=== PATIENT | female | born 1990 | race Two or more races ===

== ENCOUNTER 2018-06-30 21:58 | Emergency (ER) | payer MEDICAID ==
[~2018-06-30] VITALS: Ht 162.6 cm; Wt 99.8 kg
[2018-06-30 22:18] LABS: Basophils # (auto) 0 uL; Eosinophils # (auto) 0.1 uL; Lymphocytes # (auto) 0.7 uL
[2018-06-30 22:20] LABS: Basophils % (auto) 0.5 % (0.0-2.0); Eosinophils % (auto) 1.3 % (0.0-7.0); Hematocrit 39.2 % (36.0-46.0); Hemoglobin 13.2 g/dL (12.2-16.2); Mean Corpuscular Hemoglobin 24.4 pg (28.0-32.0); Mean Corpuscular Hgb Conc. 33.6 g/dL (32.0-36.0); Mean Corpuscular Volume 72.6 fL (80.0-100.0); Monocytes # (auto) 0.3 uL; Monocytes % (auto) 3.7 % (0.0-12.0); Neutrophils # (auto) 6.2 uL; Neutrophils % (auto) 84.5 % (37.0-80.0); Nucleated Red Blood Cells % 0.1 %; Platelet Count (auto) 274 10^3/uL (140-450); Red Cell Distribution Width 17.6 % (11.8-14.3); White Blood Cell 7.4 10^3/uL (4.4-10.8)
[2018-06-30 22:24] LABS: Urine Bacteria NONE SEEN /hpf (None Seen); Urine Blood 2+ /uL (Negative); Urine Mucus FEW (None Seen); Urine Specific Gravity 1.037 (1.001-1.035); Urine WBC 16 /hpf (0 - 5)
[2018-06-30 22:31] LABS: Potassium 3.4 mmol/L (3.5-5.1)
[2018-06-30 22:33] LABS: Albumin 3.7 g/dL (3.4-5.0)
[2018-06-30 22:39] LABS: BUN/Creatinine Ratio 11.7; Bilirubin, Total 0.4 mg/dL (0.2-1.0); Total Protein 8.2 g/dL (6.4-8.2)
[2018-07-01] MEDS ORDERED: SODIUM CHLORIDE 0.9% 1,000 ML IV ONE (02:45)
[2018-07-01] MEDS ORDERED: ONDANSETRON HCL 4 MG/2 ML VIAL IV ONE (02:45)
[2018-07-01 03:49] VITALS: BP 108/54
== END 2018-07-01 04:04 | disposition home or self-care (01) ==
LOC: ER 22:05
DX: O99.89 Other specified diseases and conditions complicating pregnancy, childbirth and the puerperium (principal); M54.9 Dorsalgia, unspecified; Z3A.09 9 weeks gestation of pregnancy
CPT/HCPCS: 36415; 76801; 80053; 81001; 84702; 85025; 96374; 99284; J2405; J7030

== ENCOUNTER 2019-01-12 19:01 | Observation (INO) | payer MEDICAID | END 2019-01-12 21:05 | disposition home or self-care (01) | DRG 861 | LOC: LDRP 19:01 | PROVIDERS: ADMIT Specialist; ATTEND Specialist | DX: Z34.83 Encounter for supervision of other normal pregnancy, third trimester (principal); Z3A.38 38 weeks gestation of pregnancy | CPT/HCPCS: 59025; 76818; 81002; G0378 ==

== ENCOUNTER 2019-01-15 15:03 | Observation (INO) | payer MEDICAID | END 2019-01-15 16:40 | disposition home or self-care (01) | DRG 566 | LOC: LDRP 15:03 | PROVIDERS: ADMIT Specialist; ATTEND Specialist | DX: O62.9 Abnormality of forces of labor, unspecified (principal); N89.8 Other specified noninflammatory disorders of vagina; O34.63 Maternal care for abnormality of vagina, third trimester; Z3A.38 38 weeks gestation of pregnancy | CPT/HCPCS: 59025; 76818; 81002; G0378 ==

== ENCOUNTER 2019-01-19 18:53 | Observation (INO) | payer MEDICAID | END 2019-01-19 20:45 | disposition home or self-care (01) | DRG 566 | LOC: LDRP 18:53 | PROVIDERS: ADMIT Obstetrics & Gynecology; ATTEND Obstetrics & Gynecology | DX: O40.3XX0 Polyhydramnios, third trimester, not applicable or unspecified (principal); Z3A.39 39 weeks gestation of pregnancy | CPT/HCPCS: 59025; 76818; 81002; G0378 ==

== ENCOUNTER 2019-01-22 13:07 | Observation (INO) | payer MEDICAID | END 2019-01-22 14:30 | disposition home or self-care (01) | DRG 566 | LOC: LDRP 13:07 | PROVIDERS: ADMIT Obstetrics & Gynecology; ATTEND Obstetrics & Gynecology | DX: O40.3XX0 Polyhydramnios, third trimester, not applicable or unspecified (principal); N89.8 Other specified noninflammatory disorders of vagina; O34.63 Maternal care for abnormality of vagina, third trimester; O62.9 Abnormality of forces of labor, unspecified; Z3A.39 39 weeks gestation of pregnancy | CPT/HCPCS: 59025; 76818; 81002; G0378 ==

== ENCOUNTER 2019-01-25 10:10 | Observation (INO) | payer MEDICAID | END 2019-01-25 11:25 | disposition home or self-care (01) | DRG 566 | LOC: LDRP 10:10 | PROVIDERS: ADMIT Specialist; ATTEND Specialist | DX: O40.3XX0 Polyhydramnios, third trimester, not applicable or unspecified (principal); Z3A.39 39 weeks gestation of pregnancy | CPT/HCPCS: 59025; 76818; 81002; G0378 ==

== ENCOUNTER 2019-01-28 07:00 | Inpatient (IN) | payer MEDICAID ==
[2019-01-28] VITALS (13 sets, daily range): BP systolic 110–131; BP diastolic 31–87
[~2019-01-28] VITALS: Ht 162.6 cm; Wt 123.4 kg
[2019-01-28] MEDS: LACTATED RINGER'S 1,000 ML IV SCH ×3 (07:20→14:20)
[2019-01-28] MEDS ORDERED: PREN-96 PO (07:50)
[2019-01-28 08:01] LABS: Basophils # (auto) 0 uL; Eosinophils # (auto) 0.1 uL; Lymphocytes # (auto) 1.2 uL; Monocytes # (auto) 0.4 uL
[2019-01-28 08:03] LABS: Basophils % (auto) 0.4 % (0.0-2.0); Eosinophils % (auto) 0.9 % (0.0-7.0); Hematocrit 31.1 % (36.0-46.0); Hemoglobin 10.1 g/dL (12.2-16.2); Lymphocytes % (auto) 15.9 % (10.0-50.0); Mean Corpuscular Hemoglobin 22.5 pg (28.0-32.0); Mean Corpuscular Hgb Conc. 32.5 g/dL (32.0-36.0); Mean Corpuscular Volume 69.3 fL (80.0-100.0); Monocytes % (auto) 4.6 % (0.0-12.0); Neutrophils % (auto) 78.2 % (37.0-80.0); Platelet Count (auto) 230 10^3/uL (140-450); Red Blood Cells 4.49 10^6/uL (4.0-5.20); Red Cell Distribution Width 19.1 % (11.8-14.3); White Blood Cell 7.7 10^3/uL (4.4-10.8)
[2019-01-28 08:05] LABS: Urine Bacteria FEW /hpf (None Seen); Urine Blood Negative /uL (Negative); Urine Mucus FEW (None Seen); Urine Specific Gravity 1.029 (1.001-1.035); Urine WBC 2 /hpf (0 - 5)
[2019-01-28 08:08] LABS: INR 0.96 (0.9-1.15); Partial Thromboplastin Time 26.5 sec (23.64-32.05)
[2019-01-28 08:10] LABS: Albumin 2.4 g/dL (3.4-5.0); BUN/Creatinine Ratio 13.6; Calcium 8.1 mg/dL (8.5-10.1); Potassium 3.8 mmol/L (3.5-5.1)
[2019-01-28 08:13] LABS: Bilirubin, Total 0.4 mg/dL (0.2-1.0); Total Protein 6.7 g/dL (6.4-8.2)
[2019-01-28] MEDS ORDERED: PHENYLEPHRINE HCL 10 MG/ML VL IV ONE (10:58)
[2019-01-28] MEDS ORDERED: TETRACAINE 1% INJ 2 ML VIAL IJ ONE (11:03)
[2019-01-28] MEDS ORDERED: MORPHINE SULF(PF) 0.5MG/ML 10ML VIAL ONE (11:06)
[2019-01-28] MEDS ORDERED: ePHEDrine SULFATE 50 MG/ML AMP ONE (11:07)
[2019-01-28] MEDS ORDERED: OXYTOCIN 10 UNIT/ML 10ML VIAL ONE (11:08)
[2019-01-28] MEDS ORDERED: ceFAZolin 1GM VL ONE (11:09)
[2019-01-28] MEDS ORDERED: METOCLOPRAMIDE HCL 5MG/ml INJ 2ml VIAL ONE (11:25)
--- NOTE | 2019-01-28 11:50 | NUR ---
PER DR. ROBERTSON, PT CAN HAVE OFIRIMEV IV 1000MG ONCE, NO IV TORADOL FOR PATIENT. READ BACK AND VERIFIED ORDERS. WILL CARRY OUT.
[2019-01-28] MEDS ORDERED: diphenhdrAMINE HCL 50 MG/1 ML VL IV PRN (12:15)
[2019-01-28] MEDS ORDERED: HYDROmorphone HCL 2 MG/ML VL IV PRN (12:15)
[2019-01-28] MEDS ORDERED: KETOROLAC TROMETH 30 MG/ML 1ML VIAL IV PRN (12:15)
[2019-01-28] MEDS ORDERED: NALOXONE HCL 0.4 MG/ML VIAL IV PRN ×2 (12:15)
[2019-01-28] MEDS ORDERED: ONDANSETRON HCL 4 MG/2 ML VIAL IV PRN ×3 (12:15→12:45)
[2019-01-28] MEDS ORDERED: LACT. RINGERS/OXYTOCIN 20UNITS 1,000 ML IV SCH (12:36)
[2019-01-28] MEDS ORDERED: MORPHINE SULFATE 4 MG/ML SYR/VIAL IV PRN (12:45)
--- NOTE | 2019-01-28 13:05 | NUR ---
PATIENT REPORT RECEIVED FROM APPLICATION DESIGNERNATALIYA SIMS IN PACU.
[2019-01-28] MEDS ORDERED: ACETAMINOPHEN IV 1000 MG/100ML (10MG/ML) IV ONE (13:15)
--- NOTE | 2019-01-28 13:34 | NUR ---
Post Op for LDRP: Received patient from PACU via bed to room 108b. Patient A/A/Ox4, abdominal binder and bilateral SCD's are in place, IV fluids placed on pump and infusing per order, incisional site dressing clean/dry/intact and Dubose Catheter to gravity draining clear yellow urine. Incentive Spirometer at bedside and instruction on proper use with return demonstration done by patient. Pts fundus is firm, 2 above umbilicus, small bleeding noted. No denies any pain. Will continue to monitor.
[2019-01-28] MEDS ORDERED: ceFAZolin 1GM/50ML 50 ML IV SCH (14:00)
--- NOTE | 2019-01-28 14:05 | NUR ---
DR. ROBERTSON AT NURSES STATION, STATUS UPDATE GIVEN, TRENDING VITAL SIGNS GIVEN, URINE DIP RESULTS GIVEN, PTS FUNDUS IS FIRM, 2 ABOVE UMBILICUS, SMALL BLEEDING NOTED. ORDERS RECEIVED FROM DR. ROBERTSON FOR LR 125ML/HR, ANCEF 1GM Q8HRS. READ BACK AND VERIFIED ORDERS. WILL CARRY OUT.
--- NOTE | 2019-01-28 15:20 | NUR ---
DR. ROBERTSON CALLED, ORDERS RECEIVED FROM DR. ROBERTSON FOR HOURLY VITALS SIGNS (BLOOD PRESSURE, PULSE, O2 SATURATION), AND HOURLY [place] URINE OUTPUTS UNTIL THE MORNING. DR. ROBERTSON GIVEN ALL TRENDING VITAL SIGNS AND HOURLY URINE OUTPUTS. READ BACK AND VERIFIED. WILL CARRY OUT.
--- NOTE | 2019-01-28 18:25 | NUR ---
PT REPORT GIVEN TO Rose Marie DELA CRUZ RN ON STABLE PATIENT. NO DISTRESS NOTED, PTS RESPIRATIONS ARE EVEN AND NONLABORED, RELINQUISHED CARE.
[2019-01-28] MEDS: ceFAZolin 1GM/50ML 50 ML IV SCH (19:56)
[2019-01-28 20:07] LABS: Basophils # (auto) 0 uL; Eosinophils # (auto) 0 uL; Lymphocytes # (auto) 1.2 uL; Lymphocytes % (auto) 13.3 % (10.0-50.0); Mean Corpuscular Hgb Conc. 32.5 g/dL (32.0-36.0); Monocytes # (auto) 0.5 uL; Monocytes % (auto) 5.4 % (0.0-12.0); Neutrophils # (auto) 7.1 uL
[2019-01-28 20:09] LABS: Basophils % (auto) 0.2 % (0.0-2.0); Eosinophils % (auto) 0.4 % (0.0-7.0); Hematocrit 25.5 % (36.0-46.0); Hemoglobin 8.3 g/dL (12.2-16.2); Mean Corpuscular Hemoglobin 22.5 pg (28.0-32.0); Mean Corpuscular Volume 69.2 fL (80.0-100.0); Neutrophils % (auto) 80.7 % (37.0-80.0); Nucleated Red Blood Cells % 0.1 %; Platelet Count (auto) 204 10^3/uL (140-450); Red Blood Cells 3.68 10^6/uL (4.0-5.20); Red Cell Distribution Width 18.6 % (11.8-14.3); White Blood Cell 8.7 10^3/uL (4.4-10.8)
--- NOTE | 2019-01-28 20:45 | NUR ---
Spoke with Chelsy GAMBOA with update on urine output of patient. Orders received to give 500cc LR bolus. Will follow orders.
--- NOTE | 2019-01-28 22:00 | NUR ---
Bottle-feeding Education: Patient encouraged to breastfeed. Benefits of and the risk of providing formula to was discussed. Patient verbalized understanding of the benefits and is aware of risk and insists on bottle-feeding. Formula provided and instruction on formula preparation from the [facility] booklet reviewed with patient.
[2019-01-29] MEDS ORDERED: ACETAMINOPHEN IV 100 ML IV ONE (01:10)
--- NOTE | 2019-01-29 02:39 | NUR ---
Ambulation: Patient OOB with standby assistance by RN. Patient ambulates within the room and situates self in chair. Dubose catheter remains in place per 's orders, draining light jovanna urine. Pericare teaching provided with returned demonstration by patient. Clean gown provided and bed linen changed.
[2019-01-29 02:50] VITALS: BP 94/56
[2019-01-29] MEDS: ceFAZolin 1GM/50ML 50 ML IV SCH (04:03)
[2019-01-29 04:06] LABS: RPR Non Reactive (Non Reactive)
[2019-01-29 07:04] LABS: Basophils # (auto) 0 uL; Eosinophils # (auto) 0.1 uL; Hemoglobin 8.1 g/dL (12.2-16.2)
[2019-01-29 07:09] LABS: Basophils % (auto) 0.3 % (0.0-2.0); Eosinophils % (auto) 0.8 % (0.0-7.0); Hematocrit 24.3 % (36.0-46.0); Lymphocytes # (auto) 0.8 uL; Mean Corpuscular Hgb Conc. 33.3 g/dL (32.0-36.0); Monocytes # (auto) 0.5 uL; Monocytes % (auto) 6.3 % (0.0-12.0); Neutrophils # (auto) 6.2 uL; Neutrophils % (auto) 81.6 % (37.0-80.0); Nucleated Red Blood Cells % 0.1 %; Platelet Count (auto) 192 10^3/uL (140-450); Red Blood Cells 3.52 10^6/uL (4.0-5.20); Red Cell Distribution Width 18.4 % (11.8-14.3); White Blood Cell 7.6 10^3/uL (4.4-10.8)
--- NOTE | 2019-01-29 07:17 | NUR ---
Thakkar catheter dc'd Order to discontinue thakkar catheter. Thakkar dc'd with clean technique following deflation of balloon. Patient tolerated well with no complaints of pain. Continue care.
[2019-01-29 07:21] VITALS: BP 116/80
[2019-01-29] MEDS ORDERED: HYDROcodone-ACET 5/325MG TAB PO PRN (07:30)
[2019-01-29] MEDS ORDERED: BISACODYL 10 MG RECT SUPP PR PRN (07:30)
--- NOTE | 2019-01-29 08:00 | NUR ---
entered room, patient in bathroom, call light was pulled. standing and holding side rail for stability. patient was pale and stated she felt dizzy. three other RN's in room for assistance. got patient back in bed sitting on side on bed. patients blood pressure 109/64. set patient in chair next to bed.
[2019-01-29] MEDS: IBUPROFEN 800 MG TAB PO PRN (09:04)
[2019-01-29] MEDS: DOCUSATE CALCIUM 240 MG CAP PO SCH (09:51)
[2019-01-29] MEDS: DOCUSATE SOD 100 MG CAP PO SCH ×2 (09:51→21:50)
[2019-01-29] MEDS: FERROUS SULFATE 325 MG TAB PO SCH ×2 (09:52→21:50)
[2019-01-29 10:50] VITALS: BP 114/71
[2019-01-29] MEDS ORDERED: ceFAZolin 1GM/50ML 50 ML IV SCH (12:00)
[2019-01-29] MEDS: SIMETHICONE 80 MG CHEWABLE TABLET PO SCH ×3 (12:08→21:50)
--- NOTE | 2019-01-29 13:00 | NUR ---
Ambulation: Patient OOB with standby assistance by RN. Patient ambulated to bathroom with steady gait. Patient able to void without difficulty. Pericare teaching provided with returned demonstration by patient. Clean gown provided. Patient ambulated back to bed with steady gait and no distress noted.
[2019-01-29 15:00] VITALS: BP 118/65
[2019-01-29 19:00] VITALS: BP 110/58
[2019-01-29] MEDS: HYDROcodone-ACET 5/325MG TAB PO PRN (21:15)
[2019-01-29 22:45] VITALS: BP 117/66
[2019-01-30 03:00] VITALS: BP 128/70
[2019-01-30] MEDS: HYDROcodone-ACET 5/325MG TAB PO PRN ×3 (03:07→17:36)
[2019-01-30] MEDS: SIMETHICONE 80 MG CHEWABLE TABLET PO SCH ×4 (06:20→22:29)
[2019-01-30 07:10] VITALS: BP 121/68
[2019-01-30] MEDS: IBUPROFEN 800 MG TAB PO PRN ×2 (08:44→22:30)
[2019-01-30] MEDS: FERROUS SULFATE 325 MG TAB PO SCH ×2 (10:31→22:35)
[2019-01-30] MEDS: DOCUSATE CALCIUM 240 MG CAP PO SCH (10:31)
[2019-01-30] MEDS: DOCUSATE SOD 100 MG CAP PO SCH ×2 (10:31→22:30)
[2019-01-30 11:10] VITALS: BP 119/65
[2019-01-30 15:00] VITALS: BP 121/66
[2019-01-30 19:00] VITALS: BP 106/56
[2019-01-30 22:37] VITALS: BP 108/64
[2019-01-31 03:30] VITALS: BP 120/67
[2019-01-31] MEDS: HYDROcodone-ACET 5/325MG TAB PO PRN (03:47)
[2019-01-31] MEDS: SIMETHICONE 80 MG CHEWABLE TABLET PO SCH ×2 (06:17→12:00)
[2019-01-31 07:00] VITALS: BP 113/67
--- NOTE | 2019-01-31 07:10 | NUR ---
IV removal IV DC'd with sterile technique, catheter fully intact. Pressure dressing applied to site. Patient tolerated procedure well.
[2019-01-31] MEDS: IBUPROFEN 800 MG TAB PO PRN (08:27)
[2019-01-31] MEDS: DOCUSATE CALCIUM 240 MG CAP PO SCH (09:58)
[2019-01-31] MEDS: FERROUS SULFATE 325 MG TAB PO SCH (09:58)
[2019-01-31] MEDS: DOCUSATE SOD 100 MG CAP PO SCH (09:58)
[2019-01-31 11:00] VITALS: BP 115/68
--- NOTE | 2019-01-31 11:00 | NUR ---
Doctor rounding Dr Early at PT bedside, incision site examined and orders received to leave in [place] in place and PT to have them removed at her follow up visit on 02/03/19 and PT to be discharged today
--- NOTE | 2019-01-31 11:30 | NUR ---
Discharge: Discharge instructions given as ordered. Pt encouraged to follow up with [facility] as instructed. All questions and concerns addressed. Patient verbalized understanding. Medication reconciliation completed and copy given to patient. Patient encouraged to prepare to depart unit.
--- NOTE | 2019-01-31 12:40 | NUR ---
Discharge: Patient taken to vehicle ambulatory via steady gait, pt declined wheelchair with all personal belongings, accompanied by staff and spouse No distress noted at time of departure, no adverse changes in status since initial assessment.
== END 2019-01-31 12:40 | disposition home or self-care (01) | DRG 540 ==
LOC: LDRP 07:00 → OBSVTOIN 07:00 → LDRP 12:01
PROVIDERS: ADMIT Specialist; ATTEND Specialist
PROC: 10D00Z1 Extraction of Products of Conception, Low, Open Approach (ICD-10-PCS; principal; 2019-01-28 11:03)
DX: O36.60X0 Maternal care for excessive fetal growth, unspecified trimester, not applicable or unspecified (principal); E66.01 Morbid (severe) obesity due to excess calories; O99.214 Obesity complicating childbirth; O36.63X0 Maternal care for excessive fetal growth, third trimester, not applicable or unspecified; O40.3XX0 Polyhydramnios, third trimester, not applicable or unspecified; O99.62 Diseases of the digestive system complicating childbirth; K21.9 Gastro-esophageal reflux disease without esophagitis; Z37.0 Single live birth; Z3A.39 39 weeks gestation of pregnancy
CPT/HCPCS: 36415; 51702; 59025; 80053; 81001; 84112; 85025; 85610; 85730; 86592; 86850; 86900; 86901; 94760; 96365; 96366; G0378; J0131; J0690; J2590

== ENCOUNTER 2022-03-04 09:19 | Emergency (ER) | payer MEDICAID ==
[~2022-03-04] VITALS: Ht 162.6 cm; Wt 100.0 kg
[~2022-03-04 09:19] MED LIST: PREN-96 PO
[2022-03-04 11:04] LABS: Basophils # (auto) 0 10 ^3/uL (0-0.2); Basophils % (auto) 0.5 % (0.0-2.0); Eosinophils # (auto) 0.1 10 ^3/uL (0-0.8); Hemoglobin 11.2 g/dL (12.2-16.2); Monocytes # (auto) 0.3 10 ^3/uL (0-1.3); Monocytes % (auto) 3.8 % (0.0-12.0); White Blood Cell 7.9 10^3/uL (4.4-10.8)
[2022-03-04 11:09] LABS: Eosinophils % (auto) 1.1 % (0.0-7.0); Hematocrit 34.7 % (36.0-46.0); Lymphocytes % (auto) 12.7 % (10.0-50.0); Mean Corpuscular Hemoglobin 22.3 pg (28.0-32.0); Mean Corpuscular Hgb Conc. 32.2 g/dL (32.0-36.0); Mean Corpuscular Volume 69.2 fL (80.0-100.0); Neutrophils # (auto) 6.4 10 ^3/uL (1.6-8.6); Neutrophils % (auto) 81.9 % (37.0-80.0); Nucleated Red Blood Cells % 0.2 %; Red Blood Cells 5.01 10^6/uL (4.0-5.20); Red Cell Distribution Width 18.6 % (11.8-14.3)
[2022-03-04 11:10] LABS: Albumin 3.5 g/dL (3.4-5.0); Calcium 9.2 mg/dL (8.5-10.1); Potassium 4.6 mmol/L (3.5-5.1)
[2022-03-04 11:12] LABS: BUN/Creatinine Ratio 13.1
[2022-03-04 11:18] LABS: Bilirubin, Total 0.3 mg/dL (0.2-1.0); Total Protein 7.4 g/dL (6.4-8.2)
[2022-03-04 12:52] LABS: Urine WBC None Seen /hpf (0 - 5)
[2022-03-04 13:43] LABS: Urine Bacteria NONE SEEN /hpf (None Seen); Urine Blood 3+ /uL (Negative)
[2022-03-04 13:49] LABS: Urine Specific Gravity 1.035 (1.001-1.035)
[2022-03-04] MEDS ORDERED: METH-822 OR (14:32)
[2022-03-04] MEDS ORDERED: CEPH-322 PO (14:32)
[2022-03-04 16:00] VITALS: BP 132/67
== END 2022-03-04 16:15 | disposition home or self-care (01) ==
LOC: ER 09:19
DX: O03.9 Complete or unspecified spontaneous abortion without complication (principal); Z3A.01 Less than 8 weeks gestation of pregnancy
CPT/HCPCS: 36415; 76801; 76817; 80053; 81001; 81025; 84702; 85025; 86850; 86900; 86901